=== PATIENT | female | born 1975 | race African-American/Black ===

== ENCOUNTER → 2020-05-30 | Outpatient (CLI) | payer BC | LOC: NUC 07:58 | PROVIDERS: ATTEND Surgery | DX: E21.0 Primary hyperparathyroidism (principal) ==

== ENCOUNTER → 2020-05-31 | Outpatient (CLI) | payer BC | LOC: ULTRA 11:30 | PROVIDERS: ATTEND Surgery | DX: E04.1 Nontoxic single thyroid nodule (principal); E21.3 Hyperparathyroidism, unspecified ==

== ENCOUNTER 2020-07-04 06:01 | Day surgery (SDC) | payer BC ==
[~2020-07-04] VITALS: Ht 170.2 cm; Wt 86.2 kg
[2020-07-04 06:47] VITALS: BP 117/72
[2020-07-04 06:55] LABS: HEMATOCRIT 37.8 % (37.0-47.0); HEMOGLOBIN 12.6 gm/dL (12.0-15.0); MCH 31.3 pg (26.0-34.0); MCHC 33.4 g/dL (28.0-37.0); MCV 93.7 fL (80.0-100.0); RBC 4.04 mil/uL (4.20-5.00); RDW 13.4 % (10.5-14.5)
[2020-07-04 07:01] LABS: CALCIUM 10.5 mg/dL (8.5-10.1); CREATININE 0.8 mg/dL (0.6-1.0)
[2020-07-04 11:45] VITALS: BP 108/51
--- NOTE | 2020-07-04 11:53 | NUR ---
ASSUMED CARE OF PATIENT APPROX. 1140. VSS, PATIENT SLEEPING, AT BEDSIDE. NO SIGNS OF DISTRESS, TELE MONITOR APPLIED. WILL CONTINUE TO MONITOR.
[2020-07-04 16:53] VITALS: BP 106/63
[2020-07-04 20:15] VITALS: BP 104/62
[2020-07-05 05:19] LABS: HEMATOCRIT 35.5 % (37.0-47.0); HEMOGLOBIN 11.7 gm/dL (12.0-15.0); RBC 3.77 mil/uL (4.20-5.00); RDW 13.7 % (10.5-14.5); WBC 10.1 thou/uL (4.0-11.0)
[2020-07-05 05:28] LABS: ALBUMIN 3.2 g/dL (3.4-5.0); CALCIUM 9.3 mg/dL (8.5-10.1); CREATININE 0.9 mg/dL (0.6-1.0); MAGNESIUM 1.9 mg/dL (1.8-2.4); PHOSPHORUS 3.2 mg/dL (2.6-4.7); POTASSIUM 3.3 mmol/L (3.5-5.1)
--- NOTE | 2020-07-05 05:49 | NUR ---
VSS-AFEBRILE. LUNGS CLEAR-ROOM AIR. PAIN WELL CONTROLLED WITH PREASCRIBED PAIN MEDICATIONS. NECK DRESSING REMAINS DRY AND INTACT. NO DIFFICULTY VOIDING. CALLS APPROPRIATELY FOR ANY NEEDED ASSISTANCE.
[2020-07-05 07:51] VITALS: BP 99/56
[2020-07-05] MEDS ORDERED: OXYCODONE HCL 55 MG PO (10:39)
[2020-07-05] MEDS ORDERED: IBUPROFEN 200200 M1 PO (10:39)
[2020-07-05] MEDS ORDERED: COLACE100 MG PO (10:40)
[2020-07-05] MEDS ORDERED: TYLENOL325 MG PO (10:40)
[2020-07-05] MEDS ORDERED: MIRALAX17 GM PO (10:41)
[2020-07-05] MEDS ORDERED: CALTRATE-600 W1 EACH PO (10:45)
[2020-07-05] MEDS ORDERED: PERCOCET 5-3251 EACH PO (12:05)
[2020-07-05 13:02] VITALS: BP 99/56
--- NOTE | 2020-07-05 13:38 | NUR ---
assumed pt care this am, Vs stable. surgical dressing c/d/i, pain is managed with medications partial relief is noted. DC instructions given, precriptions given to the pt, and informed ofthe prescriptions that were sent to the pharmacy of choice. Educated on medications and precautions. Ok to shower but no soaking in bath or anywater for 2 weeks. POC followed with no signs or verbalizations of distress noted. IV removed, is at the bedside.
--- NOTE | 2020-07-05 17:06 | PATH ---
[facility] [place] [address] PATHOLOGY RPT PROCEDURE Name: AMINA CHIANG Room #: DEP [facility]..#: [id number] Admission: 07/04/20 Date of : 75 Discharge: 07/05/20 Report #: [id number] Path Case #: [id number] [facility] Accession Number: [id number] . 01 Material submitted: . PART A: parathyroid gland - LEFT INFERIOR PARATHYROID. Modifiers: left, inferior PART B: lymph node - LEFT LYMPH NODE . 01 Clinical history: . PARATHYROIDECTOMY WITH IPTH PARATHYROID ADENOMA . 02 Frozen section diagnosis: . FROZEN SECTION DIAGNOSIS: (by Dr. Sadie Roberts) FSA1. Left inferior parathyroid, excision: - Hypercellular parathyroid tissue, 1.0 grams. . These findings are discussed with Dr. Hussein Upton in OR 2 at [facility] and a written report is placed in the patient's chart. (IUV:pit 07/04/2020) . FROZEN SECTION GROSS DESCRIPTION: The specimen is received fresh from the OR labeled with the patient's name, and "left inferior parathyroid", consists of a red-will lobulated tissue of 1.0 gram measuring 1.5 x 1.2 x 0.7 cm. The capsule is inked black and the montez are removed. At this point a tiny 0.3 cm portion of the tissue is submitted for frozen section as FSA1, this is subsequently submitted for permanent sections as A1. The remainder of the unfrozen tissue is submitted for permanent sections only as A2. (IUV:pit 07/04/2020) . Frozen section performed at [facility], [address], [place] [address]. IZV/QTP . 02 Diagnosis: A. Parathyroid, left inferior parathyroid, parathyroidectomy: - Markedly hypercellular parathyroid, of 1.0 grams, compatible with a parathyroid adenoma. . B. Lymph node (1), left lymph node, biopsy: - Reactive lymph node. . (IUV:mml; 07/05/2020) QLM 07/05/2020 1400 Local [facility] [address] [place] [address] PATHOLOGY RPT PROCEDURE Name: AMINA CHIANG Room #: DEP [facility] M.R.#: [id number] Admission: 07/04/20 Date of : 75 Discharge: 07/05/20 Report #: [id number] Path Case #: [id number] . 02 Electronically signed: . Sadie Roberts MD, Pathologist NPI- [id number] . 01 Gross description: . A. SEE FROZEN SECTION FOR GROSS DESCRIPTION . B. The specimen is received in saline, labeled "Amina Chiang, left lymph node". Received is a segment of pale will lobulated tissue measuring 0.5 cm in maximum dimensions. The specimen is submitted entirely in cassette B1. (CAA; 07/04/2020) QA/QTP 07/05/2020 1408 Local . 02 Pathologist provided ICD-10: E21.5 . 02 CPT . 492207, 364660, 046354 Specimen Comment: A courtesy copy of this report has been sent to [phone] Specimen Comment: Report sent to Performed at: [address], [place] [id number] MD Jacob Leslie MD Phone: [phone] Performed at: [address] [id number] MD Sadie Roberts MD Phone: [phone]
== END 2020-07-05 15:20 | disposition home or self-care (01) ==
LOC: TBA 06:01 → OR 06:01 → TBA 06:02 → OR 08:56 → 4W 11:33 → OR 11:54
PROVIDERS: ATTEND Surgery
DX: D35.1 Benign neoplasm of parathyroid gland (principal); E21.0 Primary hyperparathyroidism; Z98.51 Tubal ligation status
CPT/HCPCS: 10047; 50010; 50101; 50386; 50417; 52190; 56524; 56526; 56760; 62110; 62900; 65020; 65040; 70005